=== PATIENT | male | born 1960 | race Caucasian/White ===

== ENCOUNTER 2017-02-01 15:13 | Emergency (ER) | payer OTHER ==
[2017-02-01 15:32] VITALS: BP 139/101; PULSE 100; RESP 18; TEMP 97.7; O2SAT 97
[2017-02-01] MEDS ORDERED: TDAP ADULT 0.5 ML INJ (BOOSTRIX) IM ONE (15:33)
--- NOTE | 2017-02-01 15:52 | EDPHY ---
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 Does sustained a laceration to the distal portion of his right thumb. Did not have any crush injury or direct injury to the bone. There is no deformity. He is up-to-date in his tetanus ROS: 10 point Review of Systems is negative except as noted in the HPI. Social History: [No] smoking Family History: [non-contributory] Physical Exam: General: Awake, alert, no acute distress Right hand: Has a 5 mm laceration over his dorsal distal thumb just distal to the nail bed. It does encroach on the nail but 2-3 mm. There is no active bleeding. There is minimal contusion around. There is no bony tenderness or deformity. Sensations intact medial laterally. Cap refills less than 2 seconds. He has no other hand injuries. Skin: No rash - Personal History Current Tetanus Diphtheria and Acellular Pertussis (TDAP): No - Medical/Surgical History Other PMH: HTN, GERD, GALL BLADDER, CERVICAL FUSION, - Social History Smoking Status: Never smoked Constitutional: Initial Vital Signs Temperature (C) 36.5 C 02/01/17 15:29 Heart Rate 100 02/01/17 15:29 Respiratory Rate 18 02/01/17 15:29 Blood Pressure 139/101 H 02/01/17 15:29 O2 Sat (%) 97 02/01/17 15:29 O2 Delivery Mode Room Air Allergies/Adverse Reactions: No Known Allergies Allergy (Unverified 02/01/17 15:29) Home Medications: Medication Instructions Recorded Lisinopril 02/01/17 Omeprazole 02/01/17 Medical Decision Making Procedures: Procedure: Digital nerve block, right thumb, indication is digit anesthesia for procedure. Patient was prepped with chlorhexidine Skin prep. 0.5% bupivacaine was infiltrated in the medial in lateral aspects for with a dorsal approach at the base of the proximal phalanx with blockage of both dorsal and volar nerves. Total of 1 mL was infiltrated. There were no complications. Procedure was performed by myself. Procedure: Laceration 1 repair. Verbal consent was obtained from the patient. The 1 cm laceration on the right thumb nail bed was anesthetized with a digital nerve block. The nail was partially removed to visualize the extent of the laceration. The wound was irrigated, draped and explored to its base with a gloved finger. There were no deep structures involved. No tendon injury was identified. The wound was repaired with 3, 6-0 Ethilon simple interrupted sutures. The wound repair was complicated by the requirement of nail removal for nail bed repair. The procedure was performed by myself. Procedure: Laceration to repair. Verbal consent was obtained from the patient. The 7 mm laceration on the right thumb, lateral aspect was anesthetized with a digital nerve block. The wound was irrigated, draped and explored to its base with a gloved finger. There were no deep structures involved. No tendon injury was identified. The wound was repaired with 2, 6-0 Ethilon simple interrupted sutures. The wound repair was uncomplicated. The procedure was performed by myself. - Data Points Medications Given: Discontinued Medications Diphtheria/Tetanus/Acell Pertussis (Boostrix) 0.5 ml IM .ONCE ONE Stop: 02/01/17 15:34 Last Admin: 02/01/17 16:18 Dose: 0.5 ml Departure - Departure Disposition: Home, Routine, Self-Care Clinical Impression: Laceration of nail bed of finger, Laceration Condition: Good Instructions: Care For Your Stitches (ED), Laceration (ED) Additional Instructions: Sutures need to be removed in 10 days. Follow up with Hand surgery in about a week for re-evaluation. Return for increasing redness, discharge from the wound, increasing pain, or any other concerns. Take her full course of antibiotics. Referrals: Vane Sandhu MD [Medical Doctor] - As per Instructions
== END 2017-02-01 16:59 | disposition home or self-care (01) ==
LOC: CED 15:13
PROC: 0HQFXZZ Repair Right Hand Skin, External Approach (ICD-10-PCS; principal; 2017-02-01)
PROC: 0HQQXZZ Repair Finger Nail, External Approach (ICD-10-PCS; principal; 2017-02-01)
DX: S61.111A Laceration without foreign body of right thumb with damage to nail, initial encounter (principal); I10 Essential (primary) hypertension; Z23 Encounter for immunization; W23.1XXA Caught, crushed, jammed, or pinched between stationary objects, initial encounter; Y92.69 Other specified industrial and construction area as the place of occurrence of the external cause; Y99.0 Civilian activity done for income or pay; Y93.89 Activity, other specified